=== PATIENT | female | born 1985 | race Caucasian/White ===

== ENCOUNTER 2021-08-12 00:10 | Inpatient (IN) | payer MEDICAID ==
[~2021-08-12] VITALS: Ht 167.6 cm; Wt 109.0 kg
[2021-08-12] MEDS ORDERED: HALOPERIDOL 5 MG TABLET PO PRN (01:45)
[2021-08-12] MEDS ORDERED: LORazepam 2 MG TABLET PO PRN (01:45)
[2021-08-12] MEDS ORDERED: ZOLPIDEM TARTRATE 10 MG TABLET PO PRN (01:45)
[2021-08-12 02:32] VITALS: BP 130/71
[2021-08-12] MEDS ORDERED: INFLUENZA VIRUS VACCINE QVS 2021-22 (6MO+)/PF 60 MCG/0.5 ML SYRINGE IM. ONE (07:15)
[2021-08-12 08:44] VITALS: BP 118/84
[2021-08-12] MEDS ORDERED: LOPERAMIDE HCL 2 MG CAPSULE PO PRN (10:30)
[2021-08-12] MEDS ORDERED: MAGNESIUM HYDROXIDE SUSPENSION 30 ML UDCUP PO PRN (10:30)
[2021-08-12] MEDS ORDERED: OLANZapine 5 MG RAPDIS TABLET PO PRN (10:30)
[2021-08-12] MEDS ORDERED: MAG HYDROX/AL HYDROX/SIMETH ES 30 ML SUSPENSION UDCUP PO PRN (10:30)
[2021-08-12] MEDS ORDERED: ACETAMINOPHEN 325 MG TABLET PO PRN (10:30)
[2021-08-12] MEDS ORDERED: HydrOXYzine PAMOATE 50 MG CAPSULE PO PRN (10:30)
[2021-08-12] MEDS ORDERED: TUBERCULIN, PURIFIED PROTEIN DERIVATIVE 5 TU/0.1 ML SYRINGE ID ONE (10:30)
[2021-08-12] MEDS ORDERED: GuaiFENesin/D-METHORPHAN [SUGAR-FREE] 200-20MG/10 ML SYRUP UDCUP PO PRN (10:30)
[2021-08-12] MEDS ORDERED: PROMETHAZINE HCL 25 MG TABLET PO PRN (10:30)
[2021-08-12 16:13] VITALS: BP 122/72
[2021-08-12] MEDS: THIAMINE 100 MG TABLET PO SCH (17:01)
[2021-08-12] MEDS ORDERED: LamoTRIgine 25 MG TABLET PO SCH (21:00)
[2021-08-12] MEDS ORDERED: OLANZapine 5 MG RAPDIS TABLET PO SCH (21:00)
[2021-08-12] MEDS ORDERED: MELATONIN 5 MG TABLET PO SCH (21:00)
[2021-08-13 00:26] VITALS: BP 116/70
[2021-08-13 08:29] VITALS: BP 118/69
[2021-08-13] MEDS ORDERED: FOLIC ACID 1 MG TABLET PO SCH (09:00)
[2021-08-13] MEDS ORDERED: OMEGA-3/DHA/EPA/FISH OIL 1,000 MG CAPSULE PO SCH (09:00)
[2021-08-13] MEDS ORDERED: FLUoxetine HCL 20 MG CAPSULE PO SCH ×2 (09:00)
[2021-08-13] MEDS ORDERED: NALTREXONE HCL 50 MG TABLET PO SCH (09:00)
[2021-08-13] MEDS ORDERED: MULTIVITAMINS WITH MINERALS, THERAPEUTIC TABLET PO SCH (09:00)
[2021-08-13] MEDS: THIAMINE 100 MG TABLET PO SCH ×2 (09:12→16:06)
[2021-08-13] MEDS ORDERED: FLUO20CA36 PO (15:43)
[2021-08-13] MEDS ORDERED: MELA5TAB40 PO (15:43)
[2021-08-13] MEDS ORDERED: OLAN5TAB94 PO (15:43)
[2021-08-13] MEDS ORDERED: NALT50TA PO (15:43)
[2021-08-13] MEDS ORDERED: OMEG-135 PO (15:43)
[2021-08-13] MEDS ORDERED: LAMO100 PO (15:43)
[2021-08-13 16:02] VITALS: BP 118/77
[2021-08-13] MEDS ORDERED: LamoTRIgine 100 MG TABLET PO SCH (21:00)
[2021-08-13] MEDS ORDERED: TESTOSTERONE 1% 50 MG-5 GM GEL PACKET TD SCH (21:00)
== END 2021-08-13 16:20 | disposition home or self-care (01) | DRG 753 ==
LOC: B3A 01:45
PROVIDERS: ADMIT Psychiatry & Neurology Psychiatry; ATTEND Psychiatry & Neurology Psychiatry
DX: F31.30 Bipolar disorder, current episode depressed, mild or moderate severity, unspecified (principal); R45.851 Suicidal ideations; F12.10 Cannabis abuse, uncomplicated; Z88.5 Allergy status to narcotic agent; Z88.1 Allergy status to other antibiotic agents
CPT/HCPCS: 90686; Q9967